=== PATIENT | female | born 1965 | race Caucasian/White ===

== ENCOUNTER 2019-04-26 10:08 | Emergency (ER) | payer OTHER ==
[~2019-04-26] VITALS: Ht 160 cm; Wt 137.7 kg
[2019-04-26] MEDS ORDERED: NS IV 1000 ML 1,000 ML IV SCH (10:37)
[2019-04-26] MEDS ORDERED: ONDANSETRON 4 MG/2 ML (SDV) Z0FRAN IVP ONE (10:45)
[2019-04-26] MEDS ORDERED: fentaNYL INJECTION 100 MCG/2 ML AMP IVP ONE (10:45)
[2019-04-26] MEDS ORDERED: KETOROLAC 30 MG/ML VIAL IVP ONE (10:45)
--- NOTE | 2019-04-26 10:48 | ED General ---
General Stated Complaint: ABD PAIN History of Present Illness Date Seen by Provider: Apr 26, 2019 Time Seen by Provider: 10:00 Initial Comments The patient is a 54-year-old female with history of prediabetes on metformin, acid reflux and obesity as well as a prior history of nephrolithiasis. She has a surgical history of prior appendectomy and cholecystectomy. She presents with concern for acute onset of sharp, focal right upper inguinal / inferomedial RLQ abdominal discomfort radiating over to the lateral aspect of the right lower quadrant of the abdomen, all with onset about 4-5 days prior to arrival and gradually worsening since then. Pain is achy and was initially intermittent but is now constant and nothing seems to make it better or worse. Patient visited an urgent care where urinalysis was initially negative but urine culture reportedly then came back positive for group B strep for which the patient is now being treated with antibiotics. She has been taking them for the past couple of days without improvement. Associated nausea. Patient reports some scant hematuria a couple of days ago. No associated fevers, vomiting, cough, shortness of breath or chest pain, upper or left-sided abdominal pain, flank pain, back pain, dysuria, unusual vaginal discharge or bleeding, changes in bowel habits. Allergies and Home Medications Allergies Coded Allergies: morphine (Unverified Adverse Reaction, Mild, nausea, 04/26/19) latex (Unverified Adverse Reaction, Unknown, 04/26/19) Patient Home Medication List Home Medication List Reviewed: Yes Review of Systems Review of Systems Constitutional: see HPI All Other Systems Reviewed Negative Unless Noted: Yes (Negative excepted noted.) Past Axpsftn-Yvtgwz-Emtjde Hx Past Med/Social Hx: Reviewed Nursing Past Med/Soc Hx Patient Social History Recent Foreign Travel: No Family Medical History Reviewed Nursing Family Hx Physical Exam Vital Signs Vital Signs - First Documented 04/26/19 10:20 Temp 36.2 Pulse 97 Resp 20 B/P (MAP) 187/87 (120) Pulse Ox 97 O2 Delivery Room Air Capillary Refill : Height, Weight, BMI Height: '" Weight: lbs. oz. kg; BMI Method: General Appearance: No Apparent Distress Comments This is an older female appearing nontoxic and in no acute distress. Head is normocephalic and atraumatic. Neck is supple and nontender. Oropharynx is moist. Lungs are clear to auscultation at all stations. There is a normal S1 and S2 without rubs or gallops and capillary refill is appropriate, less than 2 seconds globally. Abdomen is soft, nondistended and with very mild inferomedial right lower quadrant and suprapubic tenderness to palpation without rebound or guarding. There is also mild right inguinal tenderness to palpation superiorly. No erythema, warmth or swelling to the superior inguinal region. Skin is warm and dry without cyanosis, clubbing or edema. Psychiatrically, the patient demonstrates appropriate mood and affect and is alert. Progress/Results/Core Measures Suspected Sepsis SIRS Temperature: Pulse: Respiratory Rate: Laboratory Tests 04/26/19 10:25: White Blood Count 7.8 Blood Pressure / Mean: Laboratory Tests 04/26/19 10:25: Creatinine 0.76, Platelet Count 250, Total Bilirubin 0.3 Results/Orders Lab Results Laboratory Tests Test 04/26/19 10:25 04/26/19 10:40 04/26/19 10:55 Range/Units White Blood Count 7.8 4.3-11.0 10^3/uL Red Blood Count 5.19 4.35-5.85 10^6/uL Hemoglobin 13.2 11.5-16.0 G/DL Hematocrit 42 35-52 % Mean Corpuscular Volume 81 80-99 FL Mean Corpuscular Hemoglobin 25 25-34 PG Mean Corpuscular Hemoglobin Concent 31 L 32-36 G/DL Red Cell Distribution Width 15.0 H 10.0-14.5 % Platelet Count 250 130-400 10^3/uL Mean Platelet Volume 9.9 7.4-10.4 FL Neutrophils (%) (Auto) 55 42-75 % Lymphocytes (%) (Auto) 29 12-44 % Monocytes (%) (Auto) 9 0-12 % Eosinophils (%) (Auto) 6 0-10 % Basophils (%) (Auto) 1 0-10 % Neutrophils # (Auto) 4.3 1.8-7.8 X 10^3 Lymphocytes # (Auto) 2.3 1.0-4.0 X 10^3 Monocytes # (Auto) 0.7 0.0-1.0 X 10^3 Eosinophils # (Auto) 0.4 H 0.0-0.3 10^3/uL Basophils # (Auto) 0.1 0.0-0.1 10^3/uL Sodium Level 139 135-145 MMOL/L Potassium Level 3.9 3.6-5.0 MMOL/L Chloride Level 105 98-107 MMOL/L Carbon Dioxide Level 22 21-32 MMOL/L Anion Gap 12 5-14 MMOL/L Blood Urea Nitrogen 13 7-18 MG/DL Creatinine 0.76 0.60-1.30 MG/DL Estimat Glomerular Filtration Rate > 60 BUN/Creatinine Ratio 17 Glucose Level 152 H 70-105 MG/DL Calcium Level 9.1 8.5-10.1 MG/DL Corrected Calcium 9.2 8.5-10.1 MG/DL Total Bilirubin 0.3 0.1-1.0 MG/DL Aspartate Amino Transf (AST/SGOT) 19 5-34 U/L Alanine Aminotransferase (ALT/SGPT) 15 0-55 U/L Alkaline Phosphatase 136 40-136 U/L Total Protein 7.6 6.4-8.2 GM/DL Albumin 3.9 3.2-4.5 GM/DL Urine Color DARK YELLOW Urine Clarity CLEAR Urine pH 5.5 5-9 Urine Specific [place] >=1.030 1.016-1.022 Urine Protein NEGATIVE NEGATIVE Urine Glucose (UA) NEGATIVE NEGATIVE Urine Ketones NEGATIVE NEGATIVE Urine Nitrite NEGATIVE NEGATIVE Urine Bilirubin NEGATIVE NEGATIVE Urine Urobilinogen 0.2 < = 1.0 MG/DL Urine Leukocyte Esterase TRACE H NEGATIVE Urine RBC (Auto) TRACE H NEGATIVE Urine RBC 2-5 H /HPF Urine WBC 10-25 H /HPF Urine Squamous Epithelial Cells 10-25 H /HPF Urine Crystals PRESENT H /LPF Urine Calcium Oxalate Crystals MODERATE H /LPF Urine Bacteria TRACE /HPF Urine Casts NONE /LPF Urine Mucus MODERATE H /LPF Urine Culture Indicated YES Urine Test NEGATIVE NEGATIVE Micro Results Microbiology 04/26/19 Wet Prep - Final, Complete My Orders Orders - CARRIE MARES MD Cbc With Automated Diff (04/26/19 10:36) Comprehensive Metabolic Panel (04/26/19 10:36) Ua Culture If Indicated (04/26/19 10:36) Hcg,Qualitative Urine (04/26/19 10:36) Wet Prep (04/26/19 10:36) Neisseria Gonorrhea Swab (04/26/19 10:36) Chlamydia Trachomatis Swab (04/26/19 10:36) Ed Iv/Invasive Line Start (04/26/19 10:37) Ns Iv 1000 Ml (Sodium Chloride 0.9%) (04/26/19 10:37) Ondansetron Injection (Zofran Injectio (04/26/19 10:45) Fentanyl Injection (Sublimaze Injection (04/26/19 10:45) Ketorolac Injection (Toradol Injection) (04/26/19 10:45) Urine Culture (04/26/19 10:40) Ct Abdomen/Pelvis W (04/26/19 11:15) Iohexol Injection (Omnipaque 350 Mg/Ml 1 (04/26/19 11:45) Received Contrast (Hold Metformin- Contr (04/26/19 11:45) Sodium Chloride Flush (Catheter Flush Sy (04/26/19 11:45) Ns (Ivpb) (Sodium Chloride 0.9% Ivpb Bag (04/26/19 11:45) Medications Given in ED Current Medications Medications Dose Ordered Sig/Didi Route Start Time Stop Time Status Last Admin Dose Admin Fentanyl Citrate 50 mcg ONCE ONCE IVP 04/26/19 10:45 04/26/19 10:46 DC 04/26/19 11:14 50 MCG Iohexol 100 ml ONCE ONCE IV 04/26/19 11:45 04/26/19 11:46 DC 04/26/19 11:48 100 ML Ketorolac Tromethamine 30 mg ONCE ONCE IVP 04/26/19 10:45 04/26/19 10:46 DC 04/26/19 11:14 30 MG Ondansetron HCl 4 mg ONCE ONCE IVP 04/26/19 10:45 04/26/19 10:46 DC 04/26/19 11:14 4 MG Sodium Chloride 10 ml NEEDED PRN IV 04/26/19 11:45 04/26/19 11:48 10 ML Sodium Chloride 100 ml ONCE ONCE IV 04/26/19 11:45 04/26/19 11:46 DC 04/26/19 11:48 100 ML Vital Signs/I&O 04/26/19 10:20 Temp 36.2 Pulse 97 Resp 20 B/P (MAP) 187/87 (120) Pulse Ox 97 O2 Delivery Room Air Capillary Refill : Progress Note : Time: 10:52 Progress Note Well-appearing 54-year-old female who presents with 4-5 days of discomfort which seems to radiate from the right inguinal region up to the suprapubic area and right lower quadrant. Does have a history of prior nephrolithiasis but reportedly urine was without evidence of blood at the urgent care, though it was reportedly infectious and the patient is being treated with an antibiotic, though not improving. We will check labs and urinalysis and urine culture and urine and will complete pelvic examination to determine next steps from an imaging standpoint. We will then reevaluate. Will give some medication for discomfort and nausea. Update 1200: patient with mild right adnexal TTP on pelvic examination. No CMT. No external vaginal, vaginal vault or cervical abnormality noted on speculum exam. Attempted to obtain formal TVUS from the [place] ED but unfortunately this is unavailable today. Opted instead for CT of abdomen and pelvis; results are as below, nonacute and without evidence of emergency pathology. Only abnormality noted today is urine microscopy with some evidence of infection, though sample is contaminated with squamous cells. The patient is already on K eflex for UTI x2 days and feel she can continue with this. Patient is feeling much, much better after pain medication here in the emergency department. We will proceed with discharge home at this time. Will write an outpatient order for TVUS to be completed per [facility] staff; as pain had gradual onset over a few days feel it is highly unlikely to represent torsion and thus safe to defer ED TVUS and complete it in close followup on an outpatient basis. Communicated with [facility] scheduling and they will get the patient in to see Dr. Mcgarry after her study is completed. Feel the presenting issue is more likely than not to be gynecologic in etiology, so followup with [facility] will be a good place to start. Counseled patient all of the above and she is comfortable with the plan for discharge home. She understands that if she feels worse is that of better or develops other new symptoms of concern that she should return to the emergency department right away for reevaluation. All questions are answered. Diagnostic Imaging Comments CT ABDOMEN/PELVIS W EXAMINATION: CT Abdomen and Pelvis with intravenous contrast. TECHNIQUE: Multiple contiguous axial images were obtained through the abdomen and pelvis after the uneventful administration of intravenous contrast. All CT scans use one or more of the following dose optimizing techniques: automated exposure control, MA and/or KvP adjustment based on a patient size and exam type, or iterative reconstruction. HISTORY: Right lower quadrant pain. COMPARISON: None available. FINDINGS: Limited views of the lower thorax are unremarkable. The liver is normal without focal lesion. There is no biliary ductal dilation. Gallbladder is surgically absent. Pancreas is normal. Spleen is normal. Adrenal glands are normal. The kidneys are normal. There is no hydronephrosis. Urinary bladder is normal. Surgical clip is seen adjacent to the left aspect of the uterus. Uterus and ovaries are otherwise normal. There are no dilated loops of large or small bowel. No obstruction or inflammation. No free fluid or air. No abdominal or pelvic lymphadenopathy. Aorta is normal in caliber without aneurysm. There are no suspicious osseous lesions. IMPRESSION: 1. No acute abnormality in the abdomen or pelvis. Dictated on workstation # [id number] Departure Impression Primary Impression: Right lower quadrant abdominal pain Additional Impressions: Right inguinal pain Acute cystitis without hematuria Disposition: HOME, SELF-CARE Condition: Improved Departure-Patient Inst. Referrals: JUAN RAMON MCGARRY MAXWELL MD (PCP/Family) Primary Care Physician Patient Instructions: Acute Pelvic Pain (DC) Add. Discharge Instructions: Please follow up closely as scheduled for your pelvic ultrasound. We would like you to see Dr. Mcgarry in close followup after that and [facility] scheduling will work with you to make sure this happens. Take the diclofenac 3 times a day on a schedule for discomfort, with food to prevent stomach upset, and you may use the Percocet for breakthrough pain every 4-6 hours as needed. The Percocet will make you sleepy so do not drive on it or work or operate machinery. Use the Zofran as needed for nausea every 8 hours. Continue to take your Keflex for urinary tract infection until the prescription is gone. Return to the emergency department rig ht away with worsening symptoms or other new concerns. Scripts Ondansetron (Ondansetron Odt) 4 Mg Tab.rapdis 4 MG PO Q8H for Nausea, #10 TAB Prov: CARRIE MARES MD 04/26/19 Oxycodone HCl/Acetaminophen (Percocet 5-325 mg Tablet) 1 Each Tablet 1 TAB PO Q6H for Breakthrough Pain MDD 6 TABS for 7 Days, #12 TAB Prov: CARRIE MARES MD 04/26/19 Diclofenac Potassium (Diclofenac Potassium) 50 Mg Tablet 50 MG PO Q8H for Pain, #30 TAB Prov: CARRIE MARES MD 04/26/19 CARRIE MARES MD Apr 26, 2019 10:48
[2019-04-26 10:54] LABS: HEMATOCRIT 42 % (35-52); HEMOGLOBIN 13.2 G/DL (11.5-16.0); MEAN CORPUSCULAR HEMOGLOBIN 25 PG (25-34); MEAN CORPUSCULAR VOLUME 81 FL (80-99); WHITE BLOOD COUNT 7.8 10^3/uL (4.3-11.0)
[2019-04-26 10:55] LABS: BASOPHILS # (AUTO) 0.1 10^3/uL (0.0-0.1); BASOPHILS % (AUTO) 1 % (0-10); EOSINOPHILS # (AUTO) 0.4 10^3/uL (0.0-0.3); EOSINOPHILS % (AUTO) 6 % (0-10); LYMPHOCYTES # (AUTO) 2.3 X 10^3 (1.0-4.0); LYMPHOCYTES % (AUTO) 29 % (12-44); MEAN CORPUSCULAR HGB CONC 31 G/DL (32-36); MEAN PLATELET VOLUME 9.9 FL (7.4-10.4); MONOCYTES # (AUTO) 0.7 X 10^3 (0.0-1.0); MONOCYTES % (AUTO) 9 % (0-12); NEUTROPHILS # (AUTO) 4.3 X 10^3 (1.8-7.8); NEUTROPHILS % (AUTO) 55 % (42-75); PLATELET COUNT 250 10^3/uL (130-400)
[2019-04-26 10:57] LABS: BILIRUBIN,URINE NEGATIVE (NEGATIVE); CLARITY,URINE CLEAR; COLOR,URINE DARK YELLOW; GLUCOSE, URINE (UA) NEGATIVE (NEGATIVE); KETONES,URINE NEGATIVE (NEGATIVE); LEUKOCYTE ESTERASE ,URINE TRACE (NEGATIVE); NITRITE,URINE NEGATIVE (NEGATIVE); PH,URINE 5.5 (5-9); PROTEIN,URINE NEGATIVE (NEGATIVE)
[2019-04-26 11:01] LABS: BACTERIA,URINE TRACE /HPF
[2019-04-26 11:02] LABS: CALCIUM OXALATE CRYSTALS,UR MODERATE /LPF
[2019-04-26 11:06] LABS: ALANINE AMINOTRANSFERASE 15 U/L (0-55); ALBUMIN 3.9 GM/DL (3.2-4.5); ALKALINE PHOSPHATASE 136 U/L (40-136); BILIRUBIN,TOTAL 0.3 MG/DL (0.1-1.0); BUN/CREATININE RATIO 17; CALCIUM 9.1 MG/DL (8.5-10.1); CARBON DIOXIDE 22 MMOL/L (21-32); CHLORIDE 105 MMOL/L (98-107); CREATININE SERUM 0.76 MG/DL (0.60-1.30); GFR ESTIMATED > 60; GLUCOSE 152 MG/DL (70-105); POTASSIUM 3.9 MMOL/L (3.6-5.0); SODIUM 139 MMOL/L (135-145); TOTAL PROTEIN 7.6 GM/DL (6.4-8.2)
[2019-04-26] MEDS ORDERED: CATHETER FLUSH 10 ML SYR IV PRN (11:45)
[2019-04-26] MEDS ORDERED: IOHEXOL 350 MG/ML 100 ML (OMNIPAQUE 350) VIAL IV ONE (11:45)
[2019-04-26] MEDS ORDERED: HOLD METFORMIN - RECEIVED CONTRAST 20 ML VIAL IV SCH (11:45)
[2019-04-26] MEDS ORDERED: NS 100 ML (IVPB) BAG IV ONE (11:45)
[2019-04-26] MEDS ORDERED: Vitamin D (12:01)
[2019-04-26] MEDS ORDERED: Prevacid (12:01)
[2019-04-26] MEDS ORDERED: Metformin (12:01)
[2019-04-26] MEDS ORDERED: Cephalexin (12:01)
[2019-04-26] MEDS ORDERED: Premarin (12:01)
[2019-04-26] MEDS ORDERED: [UNRECOGNIZED DRUG - OTHER] (12:01)
--- NOTE | 2019-04-26 12:07 | Diagnostic Imaging Report ---
EXAMINATION: CT Abdomen and Pelvis with intravenous contrast. TECHNIQUE: Multiple contiguous axial images were obtained through the abdomen and pelvis after the uneventful administration of intravenous contrast. All CT scans use one or more of the following dose optimizing techniques: automated exposure control, MA and/or KvP adjustment based on a patient size and exam type, or iterative reconstruction. HISTORY: Right lower quadrant pain. COMPARISON: None available. FINDINGS: Limited views of the lower thorax are unremarkable. The liver is normal without focal lesion. There is no biliary ductal dilation. Gallbladder is surgically absent. Pancreas is normal. Spleen is normal. Adrenal glands are normal. The kidneys are normal. There is no hydronephrosis. Urinary bladder is normal. Surgical clip is seen adjacent to the left aspect of the uterus. Uterus and ovaries are otherwise normal. There are no dilated loops of large or small bowel. No obstruction or inflammation. No free fluid or air. No abdominal or pelvic lymphadenopathy. Aorta is normal in caliber without aneurysm. There are no suspicious osseous lesions. IMPRESSION: 1. No acute abnormality in the abdomen or pelvis. Dictated by: Dictated on workstation # [id number]
[2019-04-26] MEDS ORDERED: DICL50TA4 PO (12:46)
[2019-04-26] MEDS ORDERED: ONDA4TAB11 PO (12:46)
[2019-04-26] MEDS ORDERED: OXYC1TAB87 PO (12:46)
[2019-04-26 12:55] VITALS: BP 167/92
== END 2019-04-26 12:55 | disposition home or self-care (01) ==
LOC: ER FS 10:10
DX: R10.31 Right lower quadrant pain (principal); N30.00 Acute cystitis without hematuria; R73.03 Prediabetes; K21.9 Gastro-esophageal reflux disease without esophagitis; E66.9 Obesity, unspecified; Z90.49 Acquired absence of other specified parts of digestive tract; Z79.84 Long term (current) use of oral hypoglycemic drugs; Z88.5 Allergy status to narcotic agent; Z91.040 Latex allergy status
CPT/HCPCS: 36415; 74177; 80053; 81000; 84703; 85025; 87088; 87210; 87491; 87591; 96374; 96375

== ENCOUNTER 2019-05-05 16:20 | Emergency (ER) | payer OTHER ==
[~2019-05-05] VITALS: Ht 160 cm; Wt 134.9 kg
[~2019-05-05 16:20] MED LIST: Cephalexin; DICL50TA4 PO; Metformin; ONDA4TAB11 PO; OXYC1TAB87 PO; Premarin; Prevacid; Vitamin D; [UNRECOGNIZED DRUG - OTHER]
[2019-05-05 16:35] LABS: CLARITY,URINE SL CLOUDY; COLOR,URINE DARK YELLOW; PH,URINE 5.5 (5-9)
[2019-05-05 16:36] LABS: GLUCOSE, URINE (UA) NEGATIVE (NEGATIVE); KETONES,URINE NEGATIVE (NEGATIVE); NITRITE,URINE NEGATIVE (NEGATIVE); PROTEIN,URINE 1+ (NEGATIVE)
[2019-05-05 16:37] LABS: LEUKOCYTE ESTERASE ,URINE TRACE (NEGATIVE); RBC,URINE 50-100 /HPF
[2019-05-05 16:38] LABS: BACTERIA,URINE MODERATE /HPF; BILIRUBIN,URINE 1+ (NEGATIVE)
[2019-05-05] MEDS ORDERED: NS IV 1000 ML 1,000 ML IV SCH (16:43)
[2019-05-05] MEDS ORDERED: KETOROLAC 30 MG/ML VIAL IVP ONE (16:45)
[2019-05-05] MEDS ORDERED: fentaNYL INJECTION 100 MCG/2 ML AMP IVP PRN (16:45)
[2019-05-05] MEDS ORDERED: ONDANSETRON 4 MG/2 ML (SDV) Z0FRAN IVP ONE (16:45)
[2019-05-05 17:06] LABS: BASOPHILS # (AUTO) 0.1 10^3/uL (0.0-0.1); BASOPHILS % (AUTO) 1 % (0-10); EOSINOPHILS # (AUTO) 0.1 10^3/uL (0.0-0.3); EOSINOPHILS % (AUTO) 1 % (0-10); HEMATOCRIT 42 % (35-52); HEMOGLOBIN 13.4 G/DL (11.5-16.0); LYMPHOCYTES # (AUTO) 2.6 X 10^3 (1.0-4.0); LYMPHOCYTES % (AUTO) 26 % (12-44); MEAN CORPUSCULAR HEMOGLOBIN 26 PG (25-34); MEAN CORPUSCULAR HGB CONC 32 G/DL (32-36); MEAN CORPUSCULAR VOLUME 81 FL (80-99); MEAN PLATELET VOLUME 9.9 FL (7.4-10.4); MONOCYTES # (AUTO) 0.7 X 10^3 (0.0-1.0); MONOCYTES % (AUTO) 7 % (0-12); NEUTROPHILS # (AUTO) 6.6 X 10^3 (1.8-7.8); NEUTROPHILS % (AUTO) 65 % (42-75); PLATELET COUNT 263 10^3/uL (130-400); RED CELL DISTRIBUTION WIDTH 14.9 % (10.0-14.5); WHITE BLOOD COUNT 10.2 10^3/uL (4.3-11.0)
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
--- NOTE | 2019-05-05 17:22 | Diagnostic Imaging Report ---
PROCEDURE: CT urinary tract, rule out kidney stone. TECHNIQUE: Multiple contiguous axial images were obtained through the abdomen and pelvis without the use of intravenous contrast. Auto Exposure Controls were utilized during the CT exam to meet ALARA standards for radiation dose reduction. INDICATION: Right lower quadrant abdominal pain. COMPARISON: 04/26/2019. FINDINGS: Lung bases are clear. The gallbladder is surgically absent. There is mild right-sided hydronephrosis and hydroureter secondary to an obstructive 2 mm stone in the distal right ureter. Remainder of the solid organs vascular structures and bowel are normal. The appendix is surgically absent. The uterus is intact. Osseous structures are age-appropriate. IMPRESSION: Mild right-sided hydronephrosis secondary to an obstructive 2 mm stone in distal right ureter. Stone is located just above the right UVJ. Dictated by: Dictated on workstation # [id number]
[2019-05-05 17:29] LABS: BUN/CREATININE RATIO 13; CARBON DIOXIDE 21 MMOL/L (21-32); CHLORIDE 103 MMOL/L (98-107); GFR ESTIMATED > 60; GLUCOSE 135 MG/DL (70-105); POTASSIUM 3.8 MMOL/L (3.6-5.0); SODIUM 140 MMOL/L (135-145)
[2019-05-05 17:30] LABS: ALANINE AMINOTRANSFERASE 15 U/L (0-55); ALBUMIN 4.1 GM/DL (3.2-4.5); ALKALINE PHOSPHATASE 122 U/L (40-136); BILIRUBIN,TOTAL 0.4 MG/DL (0.1-1.0); CALCIUM 9.6 MG/DL (8.5-10.1); TOTAL PROTEIN 7.7 GM/DL (6.4-8.2)
--- NOTE | 2019-05-05 19:50 | NUR ---
opr called with [facility] [id number], accepting dr of Dr Berumen, and report number.
[2019-05-05 19:55] VITALS: BP 146/72
== END 2019-05-05 19:55 | disposition short-term general hospital (02) ==
LOC: EDUNIT# 16:20 → ER FS 16:21
DX: N13.2 Hydronephrosis with renal and ureteral calculous obstruction (principal); K21.9 Gastro-esophageal reflux disease without esophagitis; Z90.49 Acquired absence of other specified parts of digestive tract; Z88.5 Allergy status to narcotic agent; Z91.040 Latex allergy status; Z87.828 Personal history of other (healed) physical injury and trauma
CPT/HCPCS: 36415; 74176; 80053; 81000; 85025; 87088; 96374; 96375

== ENCOUNTER 2020-04-19 19:44 | Emergency (ER) | payer OTHER ==
[~2020-04-19] VITALS: Ht 162.6 cm; Wt 127.9 kg
[2020-04-19] MEDS ORDERED: NS IV 1000 ML 1,000 ML IV SCH ×2 (20:30→21:30)
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
[2020-04-19 20:38] LABS: BASOPHILS % (AUTO) 1 % (0-10); EOSINOPHILS # (AUTO) 0.1 10^3/uL (0.0-0.3); EOSINOPHILS % (AUTO) 1 % (0-10); HEMATOCRIT 44 % (35-52); LYMPHOCYTES # (AUTO) 1.8 X 10^3 (1.0-4.0); LYMPHOCYTES % (AUTO) 24 % (12-44); MEAN CORPUSCULAR HEMOGLOBIN 25 PG (25-34); MEAN CORPUSCULAR HGB CONC 32 G/DL (32-36); MEAN CORPUSCULAR VOLUME 79 FL (80-99); MEAN PLATELET VOLUME 9.9 FL (7.4-10.4); MONOCYTES # (AUTO) 0.6 X 10^3 (0.0-1.0); MONOCYTES % (AUTO) 8 % (0-12); NEUTROPHILS # (AUTO) 4.9 X 10^3 (1.8-7.8); NEUTROPHILS % (AUTO) 66 % (42-75); PLATELET COUNT 194 10^3/uL (130-400); WHITE BLOOD COUNT 7.5 10^3/uL (4.3-11.0)
[2020-04-19] MEDS ORDERED: NS 100 ML (IVPB) BAG IV ONE (20:45)
[2020-04-19] MEDS ORDERED: HOLD METFORMIN - RECEIVED CONTRAST 20 ML VIAL IV SCH (20:45)
[2020-04-19] MEDS ORDERED: IOHEXOL 350 MG/ML 150 ML (OMNIPAQUE 350) VIAL IV ONE (20:45)
[2020-04-19 20:50] LABS: PROTHROMBIN TIME PATIENT 13.8 SEC (12.2-14.7)
[2020-04-19 20:58] LABS: ALANINE AMINOTRANSFERASE 25 U/L (0-55); ALBUMIN 3.8 GM/DL (3.2-4.5); ALKALINE PHOSPHATASE 128 U/L (40-136); BILIRUBIN,TOTAL 0.3 MG/DL (0.1-1.0); BUN/CREATININE RATIO 13; CALCIUM 8.8 MG/DL (8.5-10.1); CARBON DIOXIDE 22 MMOL/L (21-32); CHLORIDE 101 MMOL/L (98-107); CREATININE SERUM 0.78 MG/DL (0.60-1.30); GFR ESTIMATED > 60; GLUCOSE 205 MG/DL (70-105); POTASSIUM 3.8 MMOL/L (3.6-5.0); SODIUM 139 MMOL/L (135-145); TOTAL PROTEIN 7.4 GM/DL (6.4-8.2)
--- NOTE | 2020-04-19 21:26 | Diagnostic Imaging Report ---
PROCEDURE: CT angiography of the chest with contrast. TECHNIQUE: Multiple contiguous axial images were obtained through the chest after uneventful bolus administration of intravenous contrast. 3D reconstructed CTA MIP acquisitions were also performed. Auto Exposure Controls were utilized during the CT exam to meet ALARA standards for radiation dose reduction. INDICATION: Covid positive patient. Chest pain. Shortness of air. Palpitations. COMPARISON: None. FINDINGS: There is no acute pulmonary embolus to the lobar branches of the pulmonary arteries. Bilateral upper lobe segmental branches are obscured by motion artifact and beam Alonso artifact within the SVC. There is however no evidence of DVT to the segmental branches of the bilateral lower lobe arteries. Subsegmental branches are also obscured by motion artifact. Thoracic aorta is normal in course and caliber. By NASCET criteria, there is no focal significant stenosis. There is no evidence of aneurysm or dissection. Heart size is within normal limits. There is no large pericardial effusion. No pathologically enlarged or morphologically abnormal mediastinal, hilar or axillary adenopathy is seen. Evaluation of the lung ivan demonstrates scattered interstitial infiltrates, bilaterally, consistent with clinical history of Covid pneumonia. Pulmonary nodule may be obscured. There is no large effusion or pneumothorax on either side. Osseous structures show no acute abnormality. Included portions of the upper abdomen show no additional acute abnormality. IMPRESSION: 1. No acute pulmonary embolus to the lobar division of the pulmonary arteries. 2. Scattered patchy interstitial infiltrates consistent with clinical history of Covid pneumonia. Dictated by: Dictated on workstation # [id number]
[2020-04-19] MEDS ORDERED: PANTOPRAZOLE 40 MG (PROTONIX) VIAL IV STA (21:27)
[2020-04-19] MEDS ORDERED: RX-ALBUTEROL INHALER (VENTOLIN HFA) 18 GM IH ONE ×2 (21:31→21:36)
[2020-04-19] MEDS ORDERED: ONDANSETRON 4 MG/2 ML (SDV) Z0FRAN ONE (21:43)
[2020-04-19] MEDS ORDERED: ONDANSETRON 4 MG/2 ML (SDV) Z0FRAN IVP STA (21:45)
[2020-04-19 22:43] VITALS: BP 133/71
== END 2020-04-19 22:43 | disposition home or self-care (01) ==
LOC: EDUNIT# 19:44 → ER FS 19:47
DX: M94.0 Chondrocostal junction syndrome [Tietze] (principal); E86.0 Dehydration; U07.1 COVID-19; J98.8 Other specified respiratory disorders; E66.9 Obesity, unspecified; F41.9 Anxiety disorder, unspecified; G89.29 Other chronic pain; M54.9 Dorsalgia, unspecified; Z68.42 Body mass index [BMI] 45.0-49.9, adult; Z91.040 Latex allergy status; Z88.5 Allergy status to narcotic agent; Z79.891 Long term (current) use of opiate analgesic
CPT/HCPCS: 36415; 71275; 80053; 83605; 83735; 84484; 85025; 85610; 85730; 86141; 87040; 93005; 93041